=== PATIENT | male | born 1940 | race Caucasian/White ===

== ENCOUNTER 2019-12-01 15:07 | Emergency (ER) | payer OTHER ==
[~2019-12-01] VITALS: Ht 170.2 cm; Wt 111.1 kg
[~2019-12-01 15:07] MED LIST: AMBIEN 10 MG TA10 MG PO; ASPIRIN325 PO; CARVEDILOL12.5 MG PO; ENDOCET 5-3251 EACH PO; LIPITOR40 MG PO; LISINOPRIL5 MG PO; MIRALAX255 GM PO; NITROGLYCERIN0.4 MG SL; PREVACID30 M1 PO; SKELAXIN 800 M800 M1 PO; XANAX 0.25 MG0.25 MG PO
[2019-12-01] MEDS ORDERED: FLOMAX0.4 MG PO (15:27)
[2019-12-01] MEDS ORDERED: FLEXERIL PO (15:28)
[2019-12-01] MEDS ORDERED: TRIAMTERENE/HCT1 CA1 PO (15:28)
[2019-12-01] MEDS ORDERED: ALL DAY ALLERGY10 M3 PO (15:29)
[2019-12-01] MEDS ORDERED: GENTLE LAXATIVE5 M1 PO (15:30)
[2019-12-01] MEDS ORDERED: KLOR-CON M2020 MEQ PO (15:30)
[2019-12-01 15:49] LABS: ABSOLUTE LYMPHOCYTES 2.2 thou/uL (0.8-5.3); ABSOLUTE MONOCYTES 0.5 thou/uL (0.0-1.2); BASOPHILS 0.3 %; EOSINOPHILS 0.5 %; HEMATOCRIT 43.4 % (42.0-52.0); LYMPHOCYTES 27.8 %; MCH 31.4 pg (26.0-34.0); MCHC 34.7 g/dL (28.0-37.0); MCV 90.5 fL (80.0-100.0); MONOCYTES 6.9 %; MPV 8.2 fl. (7.2-11.1); NUCLEATED RBCS 0 /100WBC; PLATELET COUNT* 171 thou/uL (150-400); POLYS 64.5 %; RBC 4.79 mil/uL (4.50-6.00); RDW-CV 14.6 % (10.5-14.5); WBC 7.7 thou/uL (4.0-11.0)
[2019-12-01 15:56] LABS: APTT 27.1 Seconds (25.0-31.3); CALCIUM 8.8 mg/dL (8.5-10.1); CREATININE 1.4 mg/dL (0.6-1.3); INR 1.1; POTASSIUM 4.3 mmol/L (3.5-5.1); PROTIME 10.9 Seconds (9.20-11.50)
[2019-12-01 16:01] LABS: ALBUMIN 3.8 g/dL (3.4-5.0); TOTAL BILIRUBIN 1.1 mg/dL (<0.1-1.0); TOTAL PROTEIN 7.3 g/dL (6.4-8.2)
[2019-12-01 16:32] VITALS: BP 142/75
== END 2019-12-01 16:32 | disposition home or self-care (01) ==
LOC: M.ERS 15:07
PROVIDERS: Physician Assistant
DX: S31.801A Laceration without foreign body of unspecified buttock, initial encounter (principal); K21.9 Gastro-esophageal reflux disease without esophagitis; E78.5 Hyperlipidemia, unspecified; I25.10 Atherosclerotic heart disease of native coronary artery without angina pectoris; Z95.1 Presence of aortocoronary bypass graft; Z90.49 Acquired absence of other specified parts of digestive tract; X58.XXXA Exposure to other specified factors, initial encounter; Y93.89 Activity, other specified; Y92.89 Other specified places as the place of occurrence of the external cause; Y99.8 Other external cause status